=== PATIENT | male | born 1975 | race Caucasian/White ===

== ENCOUNTER 2019-10-31 18:21 | Emergency (ER) | payer SELFPAY ==
[~2019-10-31] VITALS: Ht 180.3 cm; Wt 105.2 kg
[2019-10-31 18:33] VITALS: BP 170/100
--- NOTE | 2019-10-31 18:33 | NUR ---
PT W/C ASSISTED TO LOBBY TO WAIT FOR AVAILABLE BED.
--- NOTE | 2019-10-31 18:36 | NUR ---
PT GIVEN A SANDWICH MEAL TO EAT WHILE IN LOBBY.
--- NOTE | 2019-10-31 19:20 | NUR ---
44 Y/O MALE BIBA C/O LOW BLOOD SUGAR, PT PULLED OVER BY BERT, UNABLE TO FOLLOW COMMANDS, AND TASED PER EMS . PER PD, PATIENT WAS THOUGHT TO BE UNDER THE INFLUENCE UNAWARE OF DIABETIC EPISODE. PATIENT WAS TAKEN DOWN AND TASED AND TAKEN TO THE FLOOR SCRAPING ELBOWS AND RIGHT KNEE. PAIN IS A 5/10 ACUTE PAIN. BLOOD SUGAR IS 145 MG/DL AT THIS TIME. PATIENT HAS HAD FOOD SINCE TAKEN TO THE HOSPITAL. ERMD MADE AWARE OF STATUS. SIDE RAILSX1. WILL CONTINUE TO MONITOR. PMH:DIABETES; KIDNEY TRANSPLANT RX:ANTIREJECTION MEDICATIONS; INSULIN
[2019-10-31] MEDS ORDERED: BACITRACIN OINT 500 UNITS/GM PKT TP ONE ×2 (19:27→19:30)
--- NOTE | 2019-10-31 19:32 | NUR ---
[place] [facility] AT BEDSIDE
--- NOTE | 2019-10-31 19:34 | NUR ---
BACITRACIN WAS PLACED ON PTS WOUNDS. NON ADHERENT GAUZE PLACED TO COVER WOUNDS AND ROLL GAUZE TO WRAP THE PTS KNEE. PTS PMSC WNL.
[2019-10-31 19:43] VITALS: BP 150/98
--- NOTE | 2019-10-31 19:43 | NUR ---
Patient discharged with v/s stable. Written and verbal after care instructions given and explained. Patient verbalized understanding. Ambulatory with steady gait. All questions addressed prior to discharge. Advised to follow up with PMD. PT WAS D/C BY DR. MARES
== END 2019-10-31 19:43 | disposition home or self-care (01) ==
LOC: MED 18:21
DX: E11.649 Type 2 diabetes mellitus with hypoglycemia without coma (principal); Z98.890 Other specified postprocedural states
CPT/HCPCS: 99283